=== PATIENT | male | born 1990 | race Caucasian/White ===

== ENCOUNTER 2021-03-16 13:11 | Emergency (ER) | payer MEDICAID ==
[~2021-03-16] VITALS: Ht 170.2 cm; Wt 99.8 kg
[2021-03-16 14:08] VITALS: BP 150/95
[2021-03-16] MEDS ORDERED: TRAM50TA1 PO (14:57)
[2021-03-16] MEDS ORDERED: AMOX1TAB8 PO (14:57)
[2021-03-16 15:19] VITALS: BP 150/95
== END 2021-03-16 15:19 | disposition home or self-care (01) ==
LOC: MED 13:11
DX: K08.89 Other specified disorders of teeth and supporting structures (principal); Z79.899 Other long term (current) drug therapy
CPT/HCPCS: 99283

== ENCOUNTER 2021-11-02 11:50 | Emergency (ER) | payer MEDICAID, OTHER ==
[~2021-11-02] VITALS: Ht 170.2 cm; Wt 113.4 kg
[~2021-11-02 11:50] MED LIST: AMOX-1230 PO; TRAM50TA1 PO
[2021-11-02 12:09] VITALS: BP 142/92
[2021-11-02] MEDS ORDERED: NAPR-1704 PO (14:01)
--- NOTE | 2021-11-02 15:14 | NUR ---
NO NURSING INTERVENTIONS PROVIDED
[2021-11-02 15:15] VITALS: BP 142/92
--- NOTE | 2021-11-02 15:15 | NUR ---
Patient discharged with v/s stable. Written and verbal after care instructions ABOUT FINGER FRACTURE given and explained. Patient alert, oriented and verbalized understanding of instructions. Ambulatory with steady gait. All questions addressed prior to discharge. ID band removed. Patient advised to follow up with PMD. Rx of NAPROSYN given. Patient educated on indication of medication including possible reaction and side effects. Opportunity to ask questions provided and answered.
== END 2021-11-02 15:15 | disposition home or self-care (01) ==
LOC: MED 11:50
DX: S62.632A Displaced fracture of distal phalanx of right middle finger, initial encounter for closed fracture (principal); S62.634A Displaced fracture of distal phalanx of right ring finger, initial encounter for closed fracture; Z79.899 Other long term (current) drug therapy; W22.8XXA Striking against or struck by other objects, initial encounter; Y93.51 Activity, roller skating (inline) and skateboarding; Y92.89 Other specified places as the place of occurrence of the external cause; Y99.8 Other external cause status
CPT/HCPCS: 73140; 99283